=== PATIENT | female | born 1995 | race Hispanic/Latino ===

== ENCOUNTER 2016-06-29 17:47 | Emergency (ER) | payer OTHER ==
[~2016-06-29 17:47] MED LIST: XANAX0.5 M1 PO
[2016-06-29 19:04] LABS: ABSOLUTE BASOPHIL COUNT 0 /CUMM (0.0-0.2); ABSOLUTE EOSINOPHIL COUNT 0.1 /CUMM (0.0-0.7); ABSOLUTE GRANULOCYTE CT 5.1 /CUMM (1.4-6.5); ABSOLUTE LYMPH COUNT 2.4 /CUMM (1.2-3.4); ABSOLUTE MONOCYTE COUNT 0.4 /CUMM (0.10-0.60); BASOPHIL % 0.3 % (0.0-2.0); GRANULOCYTE % 64.1 % (42.2-75.2); HEMATOCRIT 41.7 % (37-47); MEAN CORPUSCULAR HGB 28.2 PG (27.0-31.0); MEAN CORPUSCULAR HGB CONC 33.4 G/DL (33.0-37.0); MEAN CORPUSCULAR VOLUME 84.4 FL (81.0-99.0); MEAN PLATELET VOLUME 6.9 FL (7.4-10.4); PLATELET COUNT 352 /CUMM (130-400); RBC DISTRIBUTION WIDTH 13.1 % (11.5-14.5); RED BLOOD CELL CT 4.94 /CUMM (4.20-5.40)
--- NOTE | 2016-06-29 19:06 | ED GI/GU/ABDOMINAL COMPLAINT ---
History of Present Illness General Chief Complaint: Abdominal Pain/Flank Pain Stated Complaint: ABD PAIN Source: patient Exam Limitations: no limitations Allergies Coded Allergies: No Known Allergies (02/26/16) Triage Note: PT TO ED C/O LLQ ABD X 3 DAYS. C/O NAUSEA YESTERDAY. DENIES V/D. Triage Nurses Notes Reviewed? yes ? N Is pt currently ? No HPI: This patient is a 21-year-old female who presented to the emergency department today for evaluation of abdominal pain. The patient reported that her pain began approximately 4 days ago and has been coming and going on its own without any provoking or palliative factors. The patient reported that the pain is primarily on the left side of her abdomen and sometimes radiates to the right side. She reported that the pain is not related to food or drink intake. The patient reported associated nausea with no vomiting. She reported that the pain is cramping in nature. The pain gets up to a 6 out of 10. She reported that she has also been having associated urinary frequency. She reported that over the last several days she has been having to urinate every 10 minutes. She denied any burning, urgency, or blood in the urine. She reported that her last menstrual period was last month. She was unable to give an exact date. She is not currently on her menses. However, the patient did report, "I get this pain when I have my period, too." The patient reported that she had some amoxicillin in the house which she tried taking without any relief of her symptoms. She did not take any other medication for her symptoms. The patient denied any constipation, diarrhea, fevers, chills, chest pain, difficulty breathing, back pain, or any other associated symptoms. (ERIC CARPENTER,DESEAN) Vital Signs & Intake/Output Vital Signs & Intake/Output Vital Signs Date Time Temp Pulse Resp B/P Pulse O2 O2 Flow FiO2 Ox Delivery Rate 06/29 1953 97.8 77 18 135/73 98 Room Air 06/29 175 98.3 84 20 149/82 99 Room Air ED Intake and Output 06/30 0000 06/29 1200 Intake Total 0 Output Total Balance 0 Intake, Oral 0 Reconcile Medications Dicyclomine Hydrochloride (Bentyl) 10 MG CAPSULE 1 CAP PO TID PRN ABDOMINAL SPASMS Ondansetron (Zofran Odt) 4 MG TAB.RAPDIS 1 TAB SL TID PRN NAUSEA (TANNER RUCKERRISSA) Past History Travel History Traveled to [place] past 21 day No Medical History Any Pertinent Medical History? see below for history Neurological: NONE EENT: NONE Cardiovascular: NONE Respiratory: NONE Gastrointestinal: NONE Hepatic: NONE Renal: NONE Musculoskeletal: NONE Psychiatric: NONE Endocrine: NONE Blood Disorders: NONE Cancer(s): NONE Surgical History Surgical History: none Psychosocial History What is your primary language Yi Tobacco Use: Never used ETOH Use: denies use Illicit Drug Use: denies illicit drug use Family History Hx Contributory? No (DESEAN REYES PA-C) Review of Systems Review of Systems Constitutional: Reports: no symptoms. EENTM: Reports: no symptoms. Respiratory: Reports: no symptoms. Cardiovascular: Reports: no symptoms. GI: Reports: see HPI. Genitourinary: Reports: see HPI. Musculoskeletal: Reports: no symptoms. Skin: Reports: no symptoms. Neurological/Psychological: Reports: no symptoms. All Other Systems: Reviewed and Negative (DESEAN REYES PA-C) Physical Exam Physical Exam Gastrointestinal: normal bowel sounds, soft, no organomegaly, nondistended. Tenderness to palpation in the left lower quadrant with no rebound or guarding. Negative Rovsing sign. Negative psoas sign. NO MCBURNEYS POINT TENDERNESS. Negative Holguin sign. Comments: Well-developed well-nourished person in no acute distress HEENT: Normal EENT exam, head normocephalic, moist mucous membranes Neck: Supple, no lymphadenopathy Back: Normal gait. Normal inspection. No CVA tenderness Respiratory: No respiratory distress. Speaking in full sentences Extremity: Normal and equal pulses Neuro: Alert oriented x3, motor sensory normal, cranial nerves normal as tested Skin: No appreciable rash on exposed skin, skin is warm and dry. Psych: Mood and affect is normal, memory and judgment is normal. Core Measures ACS in differential dx? No Severe Sepsis Present: No Septic Shock Present: No (DESEAN REYES PA-C) Progress Differential Diagnosis: AAA, AMI, appendicitis, biliary colic, bowel obstruction , colon cancer, cholecystitis, diverticulitis, ectopic , endometritis, gastritis, hepatitis, ischemic bowel, inflamm bowel dis, intrauterine , kidney stone, Brianda-Len tear, ovarian cyst, ovarian torsion, pancreatitis, PID/cervicitis, PUD/GERD, perforated viscous, threatened AB, UTI/pyelo Initial ED EKG: none Comments: 06/29/2016 7:40:18 PM: White blood cell count not elevated. CRP within normal limits. Urinalysis revealed no signs of urinary tract infection. This patient is not . The patient reported that her pain seems to have dissipated with IV Toradol. IV fluids almost done infusing. Based on this patient's history, physical examination, and clinical workup here in the emergency department, my suspicion for an acute intra-abdominal process such as appendicitis is low at this time. Likely viral syndrome. Discussed this patient the importance of returning to the emergency department should any of her symptoms worsen. CT scan deferred at this time, but explained to the patient that if her symptoms become worse, she may CT scan in the future. The patient is in agreement with the plan. (ERIC CARPENTER,DESEAN) Plan of Care: Orders Procedure Date/time Status LIPASE 06/29 1844 Complete HIGH SENSITIVITY CRP 06/29 1844 Complete COMPREHENSIVE METABOLIC PANEL 06/29 1844 Complete CBC WITHOUT DIFFERENTIAL 06/29 1844 Complete AMYLASE 06/29 1844 Complete URINE 06/29 1808 Complete URINALYSIS 06/29 180 Complete Laboratory Tests 06/29/16 1855: Anion Gap 14, Estimated GFR > 60, BUN/Creatinine Ratio 27.1 H, Glucose 91, Calcium 10.1, Total Bilirubin 0.4, AST 26, ALT 27, Alkaline Phosphatase 52, C- React Prot High Sens 2.3, Total Protein 8.2, Albumin 5.0, Globulin 3.2, Albumin/ Globulin Ratio 1.6, Amylase 106, Lipase 261, CBC w Diff NO MAN DIFF REQ, RBC 4.94, MCV 84.4, MCH 28.2, RDW 13.1, MPV 6.9 L, Gran % 64.1, Lymphocytes % 29.5, Monocytes % 5.1, Eosinophils % 1.0, Basophils % 0.3, Absolute Granulocytes 5.1, Absolute Lymphocytes 2.4, Absolute Monocytes 0.4, Absolute Eosinophils 0.1, Absolute Basophils 0, PUBS MCHC 33.4 06/29/161811: Urine Color YEL, Urine Clarity CLEAR, Urine pH 5.5, Ur Specific Bieber >= 1.030 , Urine Protein NEG, Urine Ketones NEG, Urine Nitrite NEG, Urine Bilirubin NEG, Urine Urobilinogen 0.2, Ur Leukocyte Esterase NEG, Ur Microscopic EXAM NOT REQUIRED, Urine Hemoglobin NEG, Urine Glucose NEG, Urine Test NEGATIVE Departure Departure Disposition: HOME OR SELF CARE Condition: Stable Clinical Impression Primary Impression: Viral syndrome Referrals: PATIENT HAS NO PRIMARY CARE DR (PCP/Family) Additional Instructions: Takes Zofran as prescribed for nausea. Take Bentyl as prescribed for abdominal spasms. Rest and be sure to stay hydrated. Return to the emergency department for any worsening symptoms, worsening pain, vomiting, fevers, or for any other concerns. Departure Forms: Customer Survey General Discharge Information Prescriptions: Current Visit Scripts Dicyclomine Hydrochloride (Bentyl) 1 CAP PO TID PRN ABDOMINAL SPASMS #15 CAP Ondansetron (Zofran Odt) 1 TAB SL TID PRN NAUSEA #10 TAB (DESEAN REYES PA-C) PA/TELEVISION INSTALLER Co-Sign Statement Statement: ED Attending supervision documentation- [] I saw and evaluated the patient. I have also reviewed all the pertinent lab results and diagnostic results. I agree with the findings and the plan of care as documented in the PA's/TELEVISION INSTALLER's documentation. [x] I have reviewed the ED Record and agree with the PA's/TELEVISION INSTALLER's documentation. [] Additions or exceptions (if any) to the PAs/TELEVISION INSTALLER's note and plan are summarized below: [] (RISSA HART DO)
[2016-06-29] MEDS ORDERED: BENTYL10 M1 PO (19:45)
[2016-06-29] MEDS ORDERED: ZOFRAN ODT4 M1 SL (19:45)
[2016-06-29 19:54] VITALS: BP 135/73
== END 2016-06-29 20:00 ==
LOC: ERH 17:47
PROVIDERS: Physician Assistant
DX: B34.9 Viral infection, unspecified (principal)
CPT/HCPCS: 81003; 81025; 96361; 96374; J1885

== ENCOUNTER 2016-10-16 14:23 | Emergency (ER) | payer OTHER ==
[~2016-10-16] VITALS: Ht 160 cm; Wt 58.1 kg
[~2016-10-16 14:23] MED LIST changes: +BENTYL10 M1 PO; +ZOFRAN ODT4 M1 SL
[2016-10-16 14:29] VITALS: BP 127/72
[2016-10-16] MEDS ORDERED: CYCLOBENZAPRINE5 M2 PO (15:37)
[2016-10-16] MEDS ORDERED: NAPROSYN500 M1 PO (15:37)
--- NOTE | 2016-10-16 15:37 | ED NECK/BACK PAIN COMPLAINT ---
History of Present Illness General Chief Complaint: Low Back Pain/Injury Stated Complaint: LBP AT WORK Source: patient Exam Limitations: no limitations Vital Signs & Intake/Output Vital Signs & Intake/Output Vital Signs Date Time Temp Pulse Resp B/P B/P Pulse O2 O2 Flow FiO2 Mean Ox Delivery Rate 10/16 1429 97.8 66 18 127/72 100 Room Air Allergies Coded Allergies: No Known Allergies (02/26/16) Reconcile Medications Cyclobenzaprine HCl 5 MG TABLET 1 TAB PO TIDPRN PRN MUSCLE SPASMS Dicyclomine Hydrochloride (Bentyl) 10 MG CAPSULE 1 CAP PO TID PRN ABDOMINAL SPASMS Naproxen (Naprosyn) 500 MG TABLET 1 TAB PO BID PRN PAIN AND INFLAMMATION Ondansetron (Zofran Odt) 4 MG TAB.RAPDIS 1 TAB SL TID PRN NAUSEA Triage Note: C/O RIGHT SIDED LOW BACK PAIN SINCE YESTERDAY. DENIES FALL, INJURY OR URINARY SXS. LMP: 10/13/16. Triage Nurses Notes Reviewed? yes : No Patient currently breastfeeds: No HPI: This patient is a 21-year-old female who presented to the emergency department today for 2 days of lower back pain. The patient reported that she sometimes does lift heavy boxes at work. She denied any other strenuous activity or trauma to the area. She reported that the pain is constant and nonradiating. She rates it at a 9 out of 10. The pain is sharp and constant. It is worse when she walks around. No palliative factors. The patient denied any urinary burning, urgency, frequency, or blood in the urine. She denied any abdominal pain, nausea, vomiting. This patient is currently on her menses. No fevers or chills. No bowel or bladder incontinence. No saddle paresthesia. Past History Travel History Traveled to [place] past 21 day No Medical History Any Pertinent Medical History? see below for history Neurological: NONE EENT: NONE Cardiovascular: NONE Respiratory: NONE Gastrointestinal: NONE Hepatic: NONE Renal: NONE Musculoskeletal: NONE Psychiatric: NONE Endocrine: NONE Blood Disorders: NONE Cancer(s): NONE Surgical History Surgical History: none Psychosocial History What is your primary language Latvian Tobacco Use: Never used ETOH Use: denies use Family History Hx Contributory? No Review of Systems Review of Systems Constitutional: Reports: no symptoms. Eyes: Reports: no symptoms. Ears, Nose, Throat, Mouth: Reports: no symptoms. Respiratory: Reports: no symptoms. Cardiovascular: Reports: no symptoms. Gastrointestinal/Abdominal: Reports: no symptoms. Musculoskeletal: Reports: see HPI. Skin: Reports: no symptoms. Neurological/Psychological: Reports: no symptoms. All Other Systems: Reviewed and Negative Physical Exam Physical Exam Neck: normal inspection, supple, full range of motion, normal alignment, no midline tenderness Comments: Well-developed well-nourished person in no acute distress HEENT: Normal EENT exam, head normocephalic, moist mucous membranes Back: Normal gait. Normal inspection. No bony or muscular deformities. Negative straight leg raise bilaterally. No midline tenderness. Bilateral lumbar paraspinal muscular tenderness to palpation Respiratory: No respiratory distress. Speaking in full sentences Abdomen: Soft, nontender and nondistended Extremity: Normal and equal pulses. Neuro: Alert oriented x3, cranial nerves II through XII grossly intact. Skin: No appreciable rash on exposed skin, skin is warm and dry. Psych: Mood and affect is normal Progress Differential Diagnosis: cauda equina syn, herniated disc, myofascial strain, pyelo/UTI, sciatica, spinal cord inj, thoracic outlet syn, T/L spine injury, ureterolithiasis Plan of Care: Orders Procedure Date/time Status URINE 10/16 1501 Complete URINALYSIS 10/16 1501 Complete Laboratory Tests 10/16/16 1514: Urine Color YEL, Urine Clarity CLEAR, Urine pH 5.0, Ur Specific [place] 1.025, Urine Protein TRACE H, Urine Ketones NEG, Urine Nitrite NEG, Urine Bilirubin NEG, Urine Urobilinogen 0.2, Ur Leukocyte Esterase NEG, Ur Microscopic SEDIMENT EXAMINED, Urine RBC 10-15 H, Urine WBC RARE, Ur Epithelial Cells MANY H, Urine Bacteria FEW H, Urine Hemoglobin LARGE H, Urine Glucose NEG, Urine Test NEGATIVE Departure Departure Disposition: HOME OR SELF CARE Condition: Stable Clinical Impression Primary Impression: Muscle strain Referrals: PATIENT HAS NO PRIMARY CARE DR (PCP/Family) Additional Instructions: Take Flexeril as prescribed for muscle relaxation. Take Biaxin as prescribed for pain and inflammation. Please rest and avoid any strenuous activity or heavy lifting. Gentle stretching. You may apply ice or heat to the affected area as needed. Return for any worsening symptoms or concerns. Departure Forms: Customer Survey General Discharge Information Prescriptions: Current Visit Scripts Cyclobenzaprine HCl 1 TAB PO TIDPRN PRN MUSCLE SPASMS #10 TAB Naproxen (Naprosyn) 1 TAB PO BID PRN PAIN AND INFLAMMATION #10 TAB
== END 2016-10-16 15:42 ==
LOC: ERH 14:23
DX: S39.012A Strain of muscle, fascia and tendon of lower back, initial encounter (principal); X50.9XXA Other and unspecified overexertion or strenuous movements or postures, initial encounter; Y93.89 Activity, other specified; Y92.9 Unspecified place or not applicable
CPT/HCPCS: 81001; 81025